=== PATIENT | female | born 1950 | race Caucasian/White ===

== ENCOUNTER → 2024-08-26 07:30 | Outpatient (REF) | payer MEDICARE, OTHER, SELFPAY | LOC: WDC 07:30 | PROVIDERS: ATTENDING PHYSICIAN Internal Medicine | DX: Z12.31 Encounter for screening mammogram for malignant neoplasm of breast (principal) | CPT/HCPCS: 77063; 77067 ==

== ENCOUNTER → 2024-08-29 09:55 | Outpatient (REF) | payer MEDICARE, OTHER, SELFPAY | LOC: WDC 09:55 | PROVIDERS: ATTENDING PHYSICIAN Internal Medicine | DX: R92.8 Other abnormal and inconclusive findings on diagnostic imaging of breast (principal) | CPT/HCPCS: 76642 ==

== ENCOUNTER → 2024-10-06 09:34 | Outpatient (REF) | payer MEDICARE, OTHER, SELFPAY | LOC: RAD 09:34 | PROVIDERS: ATTENDING PHYSICIAN Internal Medicine | DX: M81.0 Age-related osteoporosis without current pathological fracture (principal) | CPT/HCPCS: 77080 ==

== ENCOUNTER → 2024-11-07 07:46 | Outpatient (REF) | payer MEDICARE, OTHER, SELFPAY ==
[2024-11-07 09:36] LABS: HDL Cholesterol 86 mg/dl; LDL Cholesterol, Calculated 120 mg/dl; Total Cholesterol 222 mg/dl (50-199); Triglyceride 82 mg/dl (10-149); Very Low Density Lipoprotein 16 mg/dl (0-30)
== END ==
LOC: HWLAB 07:46
PROVIDERS: ATTENDING PHYSICIAN Internal Medicine
DX: E78.5 Hyperlipidemia, unspecified (principal)
CPT/HCPCS: 36415; 80061

== ENCOUNTER → 2025-09-28 07:17 | Outpatient (REF) | payer MEDICARE, OTHER, SELFPAY ==
[2025-09-28 08:58] LABS: ALT (SGPT) 16 U/L (0-35); AST (SGOT) 20 U/L (14-36); Albumin 4.6 g/dl (3.5-5.0); Alkaline Phosphatase 76 U/L (38-126); Blood Urea Nitrogen 17 mg/dl (7-17); Calcium 9.6 mg/dl (8.4-10.2); Carbon Dioxide 30 mmol/L (22-30); Chloride 106 mmol/L (98-107); Glucose 83 mg/dl (70-99); HDL Cholesterol 81 mg/dl; LDL Cholesterol, Calculated 135 mg/dl; Potassium 4.1 mmol/L (3.5-5.1); Sodium 140 mmol/L (135-145); Total Protein 7.9 g/dl (6.3-8.2); Very Low Density Lipoprotein 30 mg/dl (0-30); eGFR > 60.00
[2025-09-28 09:06] LABS: Glycohemoglobin (HgbA1c) 5.3 % (4.0-5.9)
[2025-09-28 09:15] LABS: Vitamin D, 25-OH*** 37.3 ng/mL (30-80)
== END ==
LOC: REG 07:17
PROVIDERS: ATTENDING PHYSICIAN Internal Medicine
DX: E78.5 Hyperlipidemia, unspecified (principal); E78.00 Pure hypercholesterolemia, unspecified; E55.9 Vitamin D deficiency, unspecified
CPT/HCPCS: 36415; 80053; 80061; 82306; 83036

== ENCOUNTER → 2025-10-13 08:14 | Outpatient (REF) | payer MEDICARE, OTHER, SELFPAY | LOC: WDC 08:14 | PROVIDERS: ATTENDING PHYSICIAN Internal Medicine | DX: Z12.31 Encounter for screening mammogram for malignant neoplasm of breast (principal) | CPT/HCPCS: 77063; 77067 ==